=== PATIENT | female | born 1960 | race African-American/Black ===

== ENCOUNTER 2025-04-22 18:02 | Emergency (ER) | payer MEDICARE, MEDICAID ==
[~2025-04-22] VITALS: Ht 165.1 cm; Wt 73.0 kg
[~2025-04-22 18:02] MED LIST: ATOR20TA65 PO; DIPH-1205 PO
[2025-04-22 18:05] VITALS: O2SAT 98
[2025-04-22 18:41] LABS: BASOPHILS % 0.7 % (0.0-2.0); EOSINOPHILS % 2.8 % (0.0-5.0); HEMATOCRIT. 35.1 % (36.0-48.0); HEMOGLOBIN. 11.4 g/dL (12.0-16.0); LYMPHOCYTES % 29.8 % (20.0-50.0); MEAN PLATELET VOLUME 7.7 fl (7.4-10.4); MONOCYTES % 8.0 % (2.0-8.0); NEUTROPHILS % 58.7 % (40.0-76.0); PLATELET 460 x1000/uL (130-400); RED BLOOD CELL COUNT 3.99 mill/uL (4.2-5.4); RED CELL DISTRIBUTION WIDTH 13.7 % (11.6-14.6)
[2025-04-22 19:05] LABS: CREATININE 1.0 mg/dL (0.6-1.0); UREA NITROGEN BLOOD 10 mg/dL (9-23)
[2025-04-22 19:07] LABS: TROPONIN I HIGH SENSITIVITY < 4 ng/L (3.0-34)
[2025-04-22 19:46] VITALS: BP 110/62; PULSE 85; RESP 14; TEMP 37.1; O2SAT 98
== END 2025-04-22 20:00 | disposition left against medical advice (07) ==
LOC: ER 18:02
DX: R53.1 Weakness (principal); M79.89 Other specified soft tissue disorders; I11.0 Hypertensive heart disease with heart failure; I50.9 Heart failure, unspecified; E11.9 Type 2 diabetes mellitus without complications; R18.0 Malignant ascites; Z85.3 Personal history of malignant neoplasm of breast; C56.9 Malignant neoplasm of unspecified ovary; Z79.899 Other long term (current) drug therapy
CPT/HCPCS: 36415; 71045; 80048; 83880; 84484; 85025; 93005; 99285; A4606

== ENCOUNTER 2025-06-07 14:34 | Inpatient (IN) | payer MEDICARE, MEDICAID ==
[~2025-06-07] VITALS: Ht 165.1 cm; Wt 81.2 kg
[2025-06-07 14:39] VITALS: O2SAT 100
[2025-06-07] MEDS: MORPHINE SULFATE 4 MG/ML INJ (FOR IV/IM USE) IV ONE (15:21)
[2025-06-07] MEDS: ONDANSETRON HCL 4MG/2ML INJ IV ONE (15:22)
[2025-06-07] MEDS: SODIUM CHLORIDE 0.9% (SEPSIS BOLUS) IV ONE (15:22)
[2025-06-07] MEDS: PIPERACILLIN/TAZO 3.375G/50ML 50 ML IV ONE (15:45)
[2025-06-07 16:03] LABS: HEMATOCRIT. 25.3 % (36.0-48.0); HEMOGLOBIN. 7.9 g/dL (12.0-16.0); MEAN PLATELET VOLUME 8.3 fl (7.4-10.4); PLATELET 510 x1000/uL (130-400); RED BLOOD CELL COUNT 2.66 mill/uL (4.2-5.4); RED CELL DISTRIBUTION WIDTH 18.2 % (11.6-14.6)
[2025-06-07 16:13] LABS: INR 2.2
[2025-06-07 16:16] LABS: UREA NITROGEN BLOOD 63 mg/dL (9-23)
[2025-06-07 16:17] LABS: ETHANOL BLOOD < 10 mg/dL (<10); TROPONIN I HIGH SENSITIVITY 33 ng/L (3.0-34)
[2025-06-07 16:18] LABS: ASPARTATE AMINOTRANSFERASE 29 IU/L (<34); BILIRUBIN DIRECT 0.1 mg/dL (<=3.0); BILIRUBIN TOTAL 0.3 mg/dL (0.1-1.0)
[2025-06-07 16:19] LABS: PROTEIN TOTAL 5.9 g/dL (6.0-8.3)
[2025-06-07 16:20] LABS: CREATININE 1.7 mg/dL (0.6-1.0)
[2025-06-07] MEDS: PANTOPRAZOLE SODIUM 40 MG/VIAL IV ONE (16:30)
[2025-06-07] MEDS: VANCOMYCIN 1G PREMIX 200 ML IV ONE (17:17)
[2025-06-07 18:36] LABS: BAND% 1.0 % (1.0-6.0); LYMPHOCYTES % MANUAL 17.0 % (20.0-60.0); MONOCYTES % MANUAL 4.0 % (2.0-8.0); NEUTROPHILS % MANUAL 78.0 % (45.0-75.0); PLATELET ESTIMATE MARKEDLY INCREASED
[2025-06-07] MEDS: ACETAMINOPHEN 1000MG/100ML 100 ML IV ONE (20:13)
[2025-06-07] MEDS ORDERED: CLONIDINE 0.1MG TABLET PO PRN (21:30)
[2025-06-07] MEDS ORDERED: DOCUSATE SODIUM 100MG CAPSULE PO PRN (21:30)
[2025-06-07] MEDS ORDERED: ONDANSETRON HCL 4MG/2ML INJ IV PRN (21:30)
[2025-06-07] MEDS ORDERED: LORAZEPAM 0.5MG TABLET PO PRN (21:30)
[2025-06-07] MEDS ORDERED: IPRATROPIUM/ALBUTEROL 0.5-3(2.5)MG/3ML NEB HHN PRN (21:30)
[2025-06-07] MEDS ORDERED: ACETAMINOPHEN 325MG TABLET PO PRN (21:30)
[2025-06-07] MEDS ORDERED: GUAIFENESIN 200MG/10ML SUGAR FREE UDC PO PRN (21:30)
[2025-06-07] MEDS ORDERED: DEXTROSE 50% WATER 50ML SYRINGE IV PRN (21:45)
[2025-06-07 22:00] VITALS: BP 112/80; PULSE 122; RESP 22; TEMP 36.6; O2SAT 97
[2025-06-07 22:35] LABS: TRIGLYCERIDE 342 mg/dL (0-150)
[2025-06-07 22:36] LABS: LDL CHOLESTEROL 103 mg/dL (5-100)
[2025-06-07 22:40] LABS: T4 FREE 0.70 ng/dL (0.89-1.76)
[2025-06-07] MEDS ORDERED: IOHEXOL-300 100 ML BOTTLE ONE (22:43)
[2025-06-07 23:04] VITALS: BP 116/76; PULSE 111; RESP 20; TEMP 36.7516
[2025-06-08] VITALS (28 sets, daily range): BP systolic 111–139; BP diastolic 73–91; PULSE 96–122; RESP 17–25; TEMP 36.3–37.2252; O2SAT 95–99
[2025-06-08] MEDS: ACETAMINOPHEN 325MG TABLET PO PRN
[2025-06-08] MEDS: VANCOMYCIN 750MG/150ML (BAXTER) IV SCH (00:36)
[2025-06-08] MEDS: DEXT 5%/0.45% NACL 1000ML 1,000 ML IV SCH ×2 (00:36→14:11)
[2025-06-08] MEDS: PIPERACILLIN/TAZO 3.375G/50ML 50 ML IV SCH (03:07)
[2025-06-08 06:06] LABS: CREATININE 1.7 mg/dL (0.6-1.0); UREA NITROGEN BLOOD 61.0 mg/dL (9-23)
[2025-06-08 07:05] LABS: BASOPHILS % 0.4 % (0.0-2.0); EOSINOPHILS % 0.0 % (0.0-5.0); HEMATOCRIT. 27.4 % (36.0-48.0); HEMOGLOBIN. 8.4 g/dL (12.0-16.0); LYMPHOCYTES % 9.7 % (20.0-50.0); MEAN PLATELET VOLUME 8.1 fl (7.4-10.4); MONOCYTES % 8.2 % (2.0-8.0); NEUTROPHILS % 81.7 % (40.0-76.0); PLATELET 375 x1000/uL (130-400); RED BLOOD CELL COUNT 2.98 mill/uL (4.2-5.4); RED CELL DISTRIBUTION WIDTH 17.1 % (11.6-14.6)
[2025-06-08 07:24] LABS: CLARITY URINE TURBID (CLEAR); COLOR URINE YELLOW (YELLOW); GLUCOSE URINE NEGATIVE (NEGATIVE); KETONES URINE TRACE (NEGATIVE); LEUKOCYTE ESTERASE URINE TRACE (NEGATIVE); NITRITE URINE NEGATIVE (NEGATIVE); OCCULT BLOOD URINE NEGATIVE (NEGATIVE); PH URINE 5.0 (4.5-8.0); PROTEIN URINE 1+ (NEGATIVE); SPECIFIC GRAVITY URINE 1.051 (1.005-1.030); UROBILINOGEN URINE 0.2 E.U./dL (0.2-1.0)
[2025-06-08] MEDS: BLOOD SUGAR DIAGNOSTIC STRIP TEST SCH (07:30)
[2025-06-08] MEDS: INSULIN LISPRO 100 UNITS/ML SUBCUT SCH (08:00)
[2025-06-08] MEDS ORDERED: NALOXONE HCL 0.4MG/ML VIAL IV PRN (08:15)
[2025-06-08 08:28] LABS: SQUAMOUS EPITHELIAL CELL URINE RARE /lpf (RARE/1+); URIC ACID CRYSTALS URINE 4+ /lpf
[2025-06-08 08:29] LABS: BACTERIA URINE 2+; WBC URINE 0-2 /hpf (0-2)
[2025-06-08 08:30] LABS: RBC URINE NONE SEEN /hpf (0-2)
[2025-06-08] MEDS: PANTOPRAZOLE SODIUM 40 MG/VIAL IV SCH (08:33)
[2025-06-08] MEDS: MORPHINE SULFATE 2 MG/ML INJ (NOT FOR IM USE) IV PRN (09:06)
[2025-06-08] MEDS: FUROSEMIDE 20MG/2ML VIAL IVP NR (11:00)
[2025-06-08] MEDS: FAMOTIDINE 20MG/2ML VIAL IV SCH (21:29)
[2025-06-09] VITALS (20 sets, daily range): BP systolic 117–138; BP diastolic 72–90; PULSE 87–119; RESP 19–28; TEMP 36.3–36.8; O2SAT 95–98
[2025-06-09 03:47] LABS: CREATININE 1.5 mg/dL (0.6-1.0); UREA NITROGEN BLOOD 57 mg/dL (9-23)
[2025-06-09] MEDS: BISACODYL 5MG TABLET PO SCH (09:48)
[2025-06-09] MEDS: VANCOMYCIN 750MG PMX (XELLIA) 150 ML IV SCH (09:48)
[2025-06-09 10:59] LABS: BASOPHILS % 0.2 % (0.0-2.0); EOSINOPHILS % 0.0 % (0.0-5.0); HEMATOCRIT. 34.0 % (36.0-48.0); HEMOGLOBIN. 11.5 g/dL (12.0-16.0); LYMPHOCYTES % 9.2 % (20.0-50.0); MEAN PLATELET VOLUME 8.6 fl (7.4-10.4); MONOCYTES % 6.8 % (2.0-8.0); NEUTROPHILS % 83.8 % (40.0-76.0); PLATELET 395 x1000/uL (130-400); RED BLOOD CELL COUNT 3.82 mill/uL (4.2-5.4); RED CELL DISTRIBUTION WIDTH 16.3 % (11.6-14.6)
[2025-06-09] MEDS ORDERED: NON FORMULARY MED XX SCH (11:15)
[2025-06-09 11:30] LABS: INR 1.9
[2025-06-09 11:52] LABS: VITAMIN B12 SERUM 366 pg/mL (211-911)
[2025-06-09 11:58] LABS: FOLIC ACID (FOLATE) SERUM 3.32 ng/mL (>5.38)
[2025-06-09] MEDS: SODIUM CHLORIDE 0.45% 500 ML IV ONE (12:34)
[2025-06-09] MEDS: IRON SUCROSE COMPLEX 100 MG/5 ML ML IV SCH (12:34)
[2025-06-09] MEDS: METOPROLOL TARTRATE 25MG TABLET PO SCH (17:01)
[2025-06-10] VITALS (14 sets, daily range): BP systolic 104–133; BP diastolic 70–88; PULSE 79–104; RESP 16–25; TEMP 36.28068–36.8; O2SAT 97–100
[2025-06-10 06:23] LABS: CREATININE 1.3 mg/dL (0.6-1.0); UREA NITROGEN BLOOD 56.0 mg/dL (9-23)
[2025-06-10] MEDS: SODIUM CHLORIDE 0.45% 500 ML IV ONE (07:47)
[2025-06-10] MEDS: SODIUM BICARBONATE 650MG TABLET PO SCH (09:00)
[2025-06-10] MEDS: FOLIC ACID 1MG TABLET PO SCH (09:01)
[2025-06-10] MEDS: PANTOPRAZOLE SODIUM 40 MG/VIAL IV SCH (09:01)
[2025-06-10 11:33] LABS: PLATELET 336 x1000/uL (130-400); RED BLOOD CELL COUNT 3.57 mill/uL (4.2-5.4); RED CELL DISTRIBUTION WIDTH 17.0 % (11.6-14.6)
[2025-06-10 12:46] LABS: INR 2.4
[2025-06-10] MEDS ORDERED: LORATADINE 10MG TABLET PO PRN (17:45)
[2025-06-10] MEDS ORDERED: DIPHENHYDRAMINE 25MG CAPSULE PO PRN (17:45)
[2025-06-10] MEDS ORDERED: ACETAMINOPHEN 325MG TABLET PO PRN (17:45)
[2025-06-11] VITALS (16 sets, daily range): BP systolic 108–131; BP diastolic 66–93; PULSE 83–108; RESP 17–28; TEMP 36.44736–37.3; O2SAT 97–100
[2025-06-11] MEDS: FERROUS SULFATE 325MG TABLET PO SCH (09:00)
[2025-06-11] MEDS: DOCUSATE SODIUM 100MG CAPSULE PO SCH (09:00)
[2025-06-11] MEDS: ASCORBIC ACID 500 MG TABLET PO SCH (09:00)
[2025-06-11 12:19] LABS: BASOPHILS % 0.2 % (0.0-2.0); EOSINOPHILS % 0.1 % (0.0-5.0); HEMATOCRIT. 33.4 % (36.0-48.0); HEMOGLOBIN. 11.0 g/dL (12.0-16.0); LYMPHOCYTES % 7.8 % (20.0-50.0); MEAN PLATELET VOLUME 7.8 fl (7.4-10.4); MONOCYTES % 5.8 % (2.0-8.0); NEUTROPHILS % 86.1 % (40.0-76.0); PLATELET 402 x1000/uL (130-400); RED BLOOD CELL COUNT 3.73 mill/uL (4.2-5.4); RED CELL DISTRIBUTION WIDTH 16.4 % (11.6-14.6)
[2025-06-11 12:35] LABS: CREATININE 1.3 mg/dL (0.6-1.0); UREA NITROGEN BLOOD 51.0 mg/dL (9-23)
[2025-06-11 12:37] LABS: INR 2.0
[2025-06-11] MEDS: IRON SUCROSE COMPLEX 100 MG/5 ML ML IV SCH (14:59)
[2025-06-11] MEDS: POTASSIUM CHLORIDE 20MEQ TABLET SR PO NR (15:30)
[2025-06-11 16:17] LABS: BG BASE EXCESS -5.3 mmol/L (-2.0-3.0); BG CARBOXYHEMOGLOBIN 0.2 % (0.5-1.5); BG DEOXYHEMOGLOBIN 2.7 % (0.0-5.0); BG FRACTION INSPIRED OXYGEN 21; BG HCO3 ACT 16.8 mmol/L (21.0-28.0); BG METHEMOGLOBIN 0.1 % (0.5-1.5); BG OXYGEN SATURATION 97.3 % (94.0-98.0); BG OXYHEMOGLOBIN 97.0 % (94.0-98.0); BG PCO2 23.9 mmHg (32.0-45.0); BG PH 7.466 (7.350-7.450); BG PO2 93.6 mmHg (83.0-108.0); BG SAMPLE SITE LEFT RADIAL; BG TOTAL HEMOGLOBIN 11.5 g/dL (12.0-16.0); BG VENT MODE ROOM AIR
[2025-06-11] MEDS: PHYTONADIONE PO SCH (16:30)
[2025-06-11] MEDS: SODIUM CHLORIDE 0.45% 500 ML IV ONE (17:48)
[2025-06-11] MEDS: PHYTONADIONE 10MG/ML INJ SUBCUT NR (18:48)
[2025-06-11] MEDS: KCL 20MEQ/100ML PREMIX 100 ML IV NR (18:48)
[2025-06-12] VITALS (13 sets, daily range): BP systolic 122–137; BP diastolic 75–99; PULSE 84–118; RESP 17–28; TEMP 36.50292–37.2; O2SAT 96–98
[2025-06-12 06:39] LABS: PLATELET 378 x1000/uL (130-400); RED BLOOD CELL COUNT 3.33 mill/uL (4.2-5.4); RED CELL DISTRIBUTION WIDTH 16.4 % (11.6-14.6)
[2025-06-12 07:03] LABS: CREATININE 1.4 mg/dL (0.6-1.0)
[2025-06-12 07:04] LABS: UREA NITROGEN BLOOD 47.0 mg/dL (9-23)
[2025-06-12] MEDS: DEXT 5% WATER + KCL 20MEQ/L 1,000 ML IV SCH ×2 (09:00→14:00)
[2025-06-12] MEDS: MEROPENEM 1G/100ML 100 ML IV SCH (18:00)
[2025-06-12] MEDS: VANCOMYCIN 1.25GM/250ML IV SCH (23:06)
[2025-06-13] VITALS (36 sets, daily range): BP systolic 117–133; BP diastolic 70–101; PULSE 90–124; RESP 18–27; TEMP 36.6–37.3; O2SAT 95–100
[2025-06-13] MEDS: DEXTROSE 5% WATER 1,000 ML IV SCH (13:45)
[2025-06-13] MEDS: FAMOTIDINE 20MG/2ML VIAL IV SCH (14:00)
[2025-06-13 17:23] LABS: PLATELET 425 x1000/uL (130-400); RED BLOOD CELL COUNT 3.63 mill/uL (4.2-5.4); RED CELL DISTRIBUTION WIDTH 17.3 % (11.6-14.6)
[2025-06-13 17:34] LABS: CREATININE 1.6 mg/dL (0.6-1.0)
[2025-06-13 17:35] LABS: UREA NITROGEN BLOOD 52 mg/dL (9-23)
[2025-06-13 17:37] LABS: PHOSPHORUS 1.8 mg/dL (2.5-4.9)
[2025-06-13 17:52] LABS: INR 1.0
[2025-06-13] MEDS: SODIUM CHLORIDE 0.45% 1,000 ML IV SCH (19:32)
[2025-06-13] MEDS ORDERED: VANCOMYCIN 750MG/150ML (BAXTER) IV SCH (21:00)
[2025-06-13] MEDS: POTASSIUM PHOSPHATE 15 MMOL in DEXT 5% WATER 245 ML IV SCH (21:31)
[2025-06-14] VITALS: BP 121/85; PULSE 94; RESP 23; TEMP 37.1; O2SAT 97
[2025-06-14 04:00] VITALS: BP 124/81; PULSE 87; RESP 20; TEMP 37; O2SAT 97
[2025-06-14 08:00] VITALS: BP 123/81; PULSE 88; RESP 19; TEMP 36.6; O2SAT 99
[2025-06-14 12:00] VITALS: BP 117/85; PULSE 81; RESP 18; TEMP 36.8; O2SAT 100
[2025-06-14] MEDS: DOCUSATE SODIUM SUGAR FREE 100MG/10ML UDC PO SCH (12:02)
[2025-06-14 15:51] LABS: PLATELET 447 x1000/uL (130-400); RED BLOOD CELL COUNT 3.60 mill/uL (4.2-5.4); RED CELL DISTRIBUTION WIDTH 17.2 % (11.6-14.6)
[2025-06-14 16:00] VITALS: BP 123/87; PULSE 109; RESP 18; TEMP 37; O2SAT 96
[2025-06-14 16:03] LABS: INR 0.9
[2025-06-14 16:14] LABS: CREATININE 1.6 mg/dL (0.6-1.0); UREA NITROGEN BLOOD 46 mg/dL (9-23)
[2025-06-14 16:16] LABS: PHOSPHORUS 2.3 mg/dL (2.5-4.9)
[2025-06-14] MEDS: SODIUM BICARBONATE 8.4% 50MEQ/50ML SYR IV NR (16:30)
[2025-06-14 20:00] VITALS: BP 124/83; PULSE 101; RESP 17; TEMP 36.9; O2SAT 96
[2025-06-15] VITALS: BP 127/94; PULSE 119; RESP 19; TEMP 36.6; O2SAT 96
[2025-06-15] MEDS: DEXT 5%/0.45% NACL 1000ML 1,000 ML IV SCH (00:08)
[2025-06-15 04:00] VITALS: BP 135/88; PULSE 103; RESP 18; TEMP 36.4; O2SAT 97
[2025-06-15 08:00] VITALS: BP 138/82; PULSE 103; RESP 18; TEMP 37.4; O2SAT 98
[2025-06-15 12:00] VITALS: BP 144/82; PULSE 105; RESP 18; TEMP 37.2; O2SAT 99
[2025-06-15] MEDS: SODIUM BICARBONATE 150 MEQ in DEXTROSE 5% WATER 850 ML IV SCH (12:59)
[2025-06-15] MEDS: POTASSIUM PHOSPHATE 20 MMOL in DEXT 5% WATER 243.3333 ML IV NR (12:59)
[2025-06-15 16:00] VITALS: BP 147/83; PULSE 105; RESP 18; TEMP 37.1; O2SAT 98
[2025-06-15 20:00] VITALS: BP 171/97; PULSE 108; RESP 18; TEMP 36.8; O2SAT 98
[2025-06-15] MEDS: METOPROLOL TARTRATE 5MG/5ML VIAL IV NR (21:57)
[2025-06-16] VITALS: BP 134/74; PULSE 108; RESP 16; TEMP 36.8; O2SAT 97
[2025-06-16 04:00] VITALS: BP 134/74; PULSE 98; RESP 18; TEMP 36.3; O2SAT 97
[2025-06-16 08:00] VITALS: BP 112/78; PULSE 97; RESP 18; TEMP 36.4; O2SAT 97
[2025-06-16] MEDS: TRAMADOL HCL/ACETAMINOPHEN 37.5/325MG TABLET PO PRN (11:11)
[2025-06-16 12:00] VITALS: BP 110/69; PULSE 117; RESP 16; TEMP 36.4; O2SAT 100
[2025-06-16 16:00] VITALS: BP 123/80; PULSE 120; RESP 18; TEMP 36.4; O2SAT 98
[2025-06-16] MEDS: HYDROCODONE/ACETAMINOPHEN 5/325MG TABLET PO NR (17:47)
[2025-06-16 20:00] VITALS: BP 115/70; PULSE 119; RESP 20; TEMP 37.3; O2SAT 98
[2025-06-17] VITALS: BP 118/78; PULSE 120; RESP 18; TEMP 36.9; O2SAT 98
[2025-06-17 04:00] VITALS: BP 139/76; PULSE 103; RESP 20; TEMP 36.9; O2SAT 98
[2025-06-17 09:00] VITALS: BP 121/82; PULSE 117; RESP 16; TEMP 36.7; O2SAT 98
[2025-06-17] MEDS ORDERED: NALOXONE HCL 0.4MG/ML VIAL IV PRN (10:00)
[2025-06-17 12:00] VITALS: BP 125/74; RESP 19; TEMP 36.7; O2SAT 97
[2025-06-17 12:32] LABS: INR 1.0
[2025-06-17 12:35] LABS: CREATININE 1.7 mg/dL (0.6-1.0); UREA NITROGEN BLOOD 56.0 mg/dL (9-23)
[2025-06-17] MEDS: METOPROLOL TARTRATE 25MG TABLET PO SCH (14:00)
[2025-06-17 16:00] VITALS: BP 165/63; PULSE 73; RESP 18; TEMP 36.4; O2SAT 100
[2025-06-17] MEDS ORDERED: METOPROLOL TARTRATE 5MG/5ML VIAL IV NR (22:49)
[2025-06-18] VITALS: BP 102/71; PULSE 121; RESP 16; TEMP 36.6; O2SAT 98
[2025-06-18 04:00] VITALS: BP 126/84; PULSE 124; RESP 20; TEMP 36.4; O2SAT 98
[2025-06-18 08:45] VITALS: BP 119/81; PULSE 125; RESP 20; TEMP 36.4; O2SAT 99
[2025-06-18 09:22] LABS: CREATININE 1.8 mg/dL (0.6-1.0); UREA NITROGEN BLOOD 60.0 mg/dL (9-23)
[2025-06-18 09:24] LABS: HEMATOCRIT. 30.0 % (36.0-48.0); HEMOGLOBIN. 9.7 g/dL (12.0-16.0); MEAN PLATELET VOLUME 8.1 fl (7.4-10.4); PLATELET 293 x1000/uL (130-400); RED BLOOD CELL COUNT 3.43 mill/uL (4.2-5.4); RED CELL DISTRIBUTION WIDTH 18.3 % (11.6-14.6)
[2025-06-18 11:20] LABS: BAND% 2.0 % (1.0-6.0); LYMPHOCYTES % MANUAL 10.0 % (20.0-60.0); METAMYELOCYTES % 1.0 % (0-0); MONOCYTES % MANUAL 2.0 % (2.0-8.0); NEUTROPHILS % MANUAL 85.0 % (45.0-75.0); NUCLEATED RED BLOOD CELLS 1 /100 WBC; PLATELET ESTIMATE NORMAL
[2025-06-18 12:00] VITALS: BP 121/73; PULSE 125; RESP 18; TEMP 37.2; O2SAT 97
[2025-06-18 16:00] VITALS: BP 110/70; PULSE 130; RESP 19; TEMP 36.7; O2SAT 98
[2025-06-18] MEDS: SODIUM CHLORIDE 0.9% 250 ML IV ONE (16:30)
[2025-06-18 20:00] VITALS: BP 116/79; PULSE 119; RESP 18; TEMP 37.2; O2SAT 98
[2025-06-19] VITALS: BP 146/79; PULSE 129; RESP 19; TEMP 36.9; O2SAT 98
[2025-06-19] MEDS: METOPROLOL TARTRATE 5MG/5ML VIAL IV NR (02:42)
[2025-06-19 04:00] VITALS: BP 101/67; PULSE 111; RESP 19; TEMP 36.9; O2SAT 98
[2025-06-19 08:00] VITALS: BP 112/66; PULSE 123; RESP 20; TEMP 36.9; O2SAT 98
[2025-06-19] MEDS: TRAMADOL HCL/ACETAMINOPHEN 37.5/325MG TABLET PO PRN (10:11)
[2025-06-19 11:45] LABS: CREATININE 2.1 mg/dL (0.6-1.0)
[2025-06-19 11:46] LABS: UREA NITROGEN BLOOD 76 mg/dL (9-23)
[2025-06-19 11:47] LABS: ASPARTATE AMINOTRANSFERASE 47 IU/L (<34)
[2025-06-19 11:48] LABS: BILIRUBIN TOTAL 0.5 mg/dL (0.1-1.0); PROTEIN TOTAL 5.3 g/dL (6.0-8.3)
[2025-06-19 12:00] VITALS: BP 111/70; PULSE 114; RESP 20; TEMP 37.1; O2SAT 97
[2025-06-19 16:00] VITALS: BP 124/74; PULSE 110; RESP 22; TEMP 36.6; O2SAT 98
[2025-06-19] MEDS: MORPHINE SULFATE 2 MG/ML INJ (NOT FOR IM USE) IV PRN (16:47)
[2025-06-19 20:00] VITALS: BP 139/74; PULSE 113; RESP 17; TEMP 36.2; O2SAT 98
[2025-06-20] VITALS: BP 131/78; PULSE 112; RESP 18; TEMP 36.6; O2SAT 97
[2025-06-20 04:00] VITALS: BP 102/57; PULSE 124; RESP 18; TEMP 36.8; O2SAT 97
[2025-06-20 08:00] VITALS: BP 112/57; PULSE 122; RESP 15; TEMP 37.1; O2SAT 95
[2025-06-20] MEDS: DEXT 5%/0.45% NACL 1000ML 1,000 ML IV SCH (11:30)
[2025-06-20 12:00] VITALS: BP 77/55; PULSE 115; RESP 18; TEMP 37.3; O2SAT 94
[2025-06-20 16:00] VITALS: BP 98/50; PULSE 123; RESP 18; TEMP 36.6; O2SAT 93
[2025-06-20 20:00] VITALS: BP 80/49; PULSE 120; RESP 17; TEMP 36.4; O2SAT 100
[2025-06-20] MEDS ORDERED: SODIUM CHLORIDE 0.9% 500 ML IV ONE (20:15)
[2025-06-20] MEDS: SODIUM CHLORIDE 0.9% 500 ML IV ONE (20:54)
[2025-06-21] VITALS (9 sets, daily range): BP systolic 40–111; BP diastolic 20–60; PULSE 117–153; RESP 16–24; TEMP 36.3–36.9; O2SAT 96–98
[2025-06-21] MEDS: MIDODRINE HCL 5MG TABLET PO SCH (00:45)
[2025-06-21] MEDS ORDERED: SODIUM CHLORIDE 0.9% 1,000 ML IV SCH (00:45)
[2025-06-21] MEDS ORDERED: LIDOCAINE HCL 1% 10 MG/ML 10ML VIAL ONE (07:38)
[2025-06-21] MEDS: SODIUM CHLORIDE 0.9% 500 ML IV ONE (08:45)
[2025-06-21] MEDS ORDERED: NOREPINEPHRINE 8 MG in DEXT 5% WATER 242 ML IV PRN (14:00)
[2025-06-21] MEDS: INSULIN LISPRO 100 UNITS/ML SUBCUT SCH (14:30)
[2025-06-21] MEDS: BLOOD SUGAR DIAGNOSTIC STRIP TEST SCH (14:30)
[2025-06-21] MEDS: DOPAMINE 400MG/250ML PREMIX 250 ML IV PRN (15:03)
[2025-06-21] MEDS: NOREPINEPHRINE 8MG/250ML PMX 250ML IV PRN (15:04)
[2025-06-21] MEDS: PHENYLEPHRINE 50MG/250ML PMX 250 ML IV PRN (15:12)
[2025-06-21] MEDS ORDERED: VANCOMYCIN 1000MG/250ML 250 ML IV STA (15:34)
[2025-06-21] MEDS: EPINEPHRINE 10 MG in SODIUM CHLORIDE 0.9% 240 ML IV PRN (16:15)
[2025-06-21] MEDS: VASOPRESSIN 20 UNIT in SODIUM CHLORIDE 0.9% 99 ML IV PRN (16:16)
[2025-06-21] MEDS: SODIUM BICARBONATE 100 MEQ in DEXTROSE 5% WATER 900 ML IV SCH (16:35)
[2025-06-21 16:44] LABS: BG BASE EXCESS -22.0 mmol/L (-2.0-3.0); BG CARBOXYHEMOGLOBIN 0.3 % (0.5-1.5); BG DEOXYHEMOGLOBIN 1.2 % (0.0-5.0); BG FRACTION INSPIRED OXYGEN 100; BG HCO3 ACT 6.9 mmol/L (21.0-28.0); BG METHEMOGLOBIN 0.3 % (0.5-1.5); BG OXYGEN SATURATION 98.8 % (94.0-98.0); BG OXYHEMOGLOBIN 98.2 % (94.0-98.0); BG PCO2 26.6 mmHg (32.0-45.0); BG PEEP (cmH2O) 5.0 cmH2O; BG PH 7.029 (7.350-7.450); BG PO2 201.3 mmHg (83.0-108.0); BG SAMPLE SITE RIGHT RADIAL; BG TIDAL VOLUME(mL) 450.0 mL; BG TOTAL HEMOGLOBIN 6.3 g/dL (12.0-16.0); BG TOTAL RESPIRATORY RATE 22 b/min; BG VENT MODE VENT - AC; BG VENT RATE 22.0 set
[2025-06-21] MEDS ORDERED: VANCOMYCIN 1.75GM PMX (XELLIA) 350 ML IV SCH (18:00)
== END 2025-06-21 18:55 | DRG 871 ==
LOC: ER 14:52 → 5EST 17:46 → EDBEDREQSVC 17:53 → EDBEDREQ 17:53 → ENRESERV 18:51 → 5WST 06-15 02:49 → CVICU 06-21 14:04
PROVIDERS: ADMIT Internal Medicine; ATTEND Internal Medicine
PROC: 30233N1 Transfusion of Nonautologous Red Blood Cells into Peripheral Vein, Percutaneous Approach (ICD-10-PCS; 2025-06-07)
PROC: 30233K1 Transfusion of Nonautologous Frozen Plasma into Peripheral Vein, Percutaneous Approach (ICD-10-PCS; 2025-06-10)
PROC: 5A12012 Performance of Cardiac Output, Single, Manual (ICD-10-PCS; principal; 2025-06-21)
PROC: 02HV33Z Insertion of Infusion Device into Superior Vena Cava, Percutaneous Approach (ICD-10-PCS; 2025-06-21)
PROC: B548ZZA Ultrasonography of Superior Vena Cava, Guidance (ICD-10-PCS; 2025-06-21)
PROC: 5A1935Z Respiratory Ventilation, Less than 24 Consecutive Hours (ICD-10-PCS; 2025-06-21)
PROC: 0BH17EZ Insertion of Endotracheal Airway into Trachea, Via Natural or Artificial Opening (ICD-10-PCS; 2025-06-21)
DX: A41.9 Sepsis, unspecified organism (principal); E43 Unspecified severe protein-calorie malnutrition; K65.9 Peritonitis, unspecified; G82.50 Quadriplegia, unspecified; G93.41 Metabolic encephalopathy; E87.20 Acidosis, unspecified; E87.0 Hyperosmolality and hypernatremia; D62 Acute posthemorrhagic anemia; C16.9 Malignant neoplasm of stomach, unspecified; N17.9 Acute kidney failure, unspecified; D68.9 Coagulation defect, unspecified; G72.81 Critical illness myopathy; I13.0 Hypertensive heart and chronic kidney disease with heart failure and stage 1 through stage 4 chronic kidney disease, or unspecified chronic kidney disease; I82.411 Acute embolism and thrombosis of right femoral vein; N39.0 Urinary tract infection, site not specified; K92.1 Melena; R18.0 Malignant ascites; C78.6 Secondary malignant neoplasm of retroperitoneum and peritoneum; E86.0 Dehydration; E83.52 Hypercalcemia; R65.20 Severe sepsis without septic shock; E53.8 Deficiency of other specified B group vitamins; E11.22 Type 2 diabetes mellitus with diabetic chronic kidney disease; I50.9 Heart failure, unspecified; K57.30 Diverticulosis of large intestine without perforation or abscess without bleeding; K80.20 Calculus of gallbladder without cholecystitis without obstruction; N18.1 Chronic kidney disease, stage 1; E87.6 Hypokalemia; R53.81 Other malaise; I46.9 Cardiac arrest, cause unspecified; R26.9 Unspecified abnormalities of gait and mobility; S30.811A Abrasion of abdominal wall, initial encounter; S31.109A Unspecified open wound of abdominal wall, unspecified quadrant without penetration into peritoneal cavity, initial encounter; F41.9 Anxiety disorder, unspecified; Z85.028 Personal history of other malignant neoplasm of stomach; Z90.710 Acquired absence of both cervix and uterus; Z85.3 Personal history of malignant neoplasm of breast; Z86.718 Personal history of other venous thrombosis and embolism; Z90.11 Acquired absence of right breast and nipple; Z79.4 Long term (current) use of insulin; Z85.43 Personal history of malignant neoplasm of ovary; Z79.899 Other long term (current) drug therapy; Z68.29 Body mass index [BMI] 29.0-29.9, adult; X58.XXXA Exposure to other specified factors, initial encounter; Y93.89 Activity, other specified; Y92.89 Other specified places as the place of occurrence of the external cause; Y99.8 Other external cause status
CPT/HCPCS: 31500; 36415; 36600; 71045; 74177; 78580; 80048; 80053; 80061; 80076; 80202; 80320; 81003; 82375; 82607; 82728; 82746; 82805; 82962; 83036; 83540; 83550; 83605; 83735; 83880; 83930; 83970; 84100; 84134; 84145; 84439; 84443; 84484; 85014; 85018; 85025; 85027; 85044; 86850; 86900; 86920; 86927; 92523; 92610; 92950; 93005; 93306; 93970; 94002; 94070; 94664; 97162; 97166; 98960; 99291; 99292; A4606; J1265; J1308; J1815; J1938; J2003; J2185; J2270; J2371; J2405; J2470; J2543; J3373; J3430; J3480; J3490; J7030; J7050; J7060; J7070; P9016; P9017; Q9967; G0480; J0131